=== PATIENT | male | born 1990 | race Caucasian/White ===

== ENCOUNTER 2021-05-04 14:04 | Outpatient (REF) | payer BC, SELFPAY ==
[2021-05-04 15:42] LABS: COVID-19 Test Negative (Negative)
== END 2021-05-04 14:05 | disposition home or self-care (01) ==
LOC: HO.LNP 14:04
PROVIDERS: Visit Provider Internal Medicine
DX: Z20.822 Contact with and (suspected) exposure to COVID-19 (principal)
CPT/HCPCS: 87635

== ENCOUNTER 2021-05-09 17:51 | Outpatient (REF) | payer BC, SELFPAY ==
[2021-05-09 18:36] LABS: COVID-19 Test Negative (Negative); IDNOW Serial# 9DD0AD1C
== END 2021-05-09 17:52 | disposition home or self-care (01) ==
LOC: HO.LNP 17:51
PROVIDERS: Visit Provider Internal Medicine
DX: Z20.822 Contact with and (suspected) exposure to COVID-19 (principal)
CPT/HCPCS: 87635

== ENCOUNTER 2021-05-11 13:06 | Outpatient (REF) | payer BC, SELFPAY ==
[2021-05-11 13:42] LABS: COVID-19 Test Negative (Negative); IDNOW Serial# 9DD0AD1C
== END 2021-05-11 13:07 | disposition home or self-care (01) ==
LOC: HO.LNP 13:06
PROVIDERS: Visit Provider Internal Medicine
DX: Z20.822 Contact with and (suspected) exposure to COVID-19 (principal)
CPT/HCPCS: 87635